=== PATIENT | female | born 1995 | race African-American/Black ===

== ENCOUNTER 2022-08-28 13:41 | Emergency (ER) | payer MEDICAID ==
[~2022-08-28] VITALS: Ht 177.8 cm; Wt 131.0 kg
[2022-08-28 13:45] VITALS: BP 158/75
[2022-08-28] MEDS ORDERED: DIPHENHYDRAMINE 25MG CAPSULE PO ONE (14:30)
[2022-08-28] MEDS ORDERED: METHYLPREDNISOLONE SOD SUCC 125 MG/2 ML VIAL IM ONE (14:30)
[2022-08-28] MEDS ORDERED: FAMOTIDINE 20MG TABLET PO ONE (14:30)
[2022-08-28] MEDS ORDERED: LORA10TA64 MT (15:22)
[2022-08-28] MEDS ORDERED: B25 MT (15:22)
[2022-08-28] MEDS ORDERED: PRED10TA MT (15:25)
[2022-08-28] MEDS ORDERED: EPIN0.3P3 IM (15:25)
[2022-08-28] MEDS ORDERED: FAMO-135 MT (15:25)
== END 2022-08-28 15:30 | disposition home or self-care (01) ==
LOC: ER 13:41
DX: T78.1XXA Other adverse food reactions, not elsewhere classified, initial encounter (principal); L29.8 Other pruritus; X58.XXXA Exposure to other specified factors, initial encounter
CPT/HCPCS: 96372; 99283; J2930; Q0163